=== PATIENT | female | born 1955 | race Caucasian/White ===

== ENCOUNTER 2017-01-13 15:25 | Inpatient (IN) | payer OTHER ==
[~2017-01-13] VITALS: Ht 152.4 cm; Wt 60.4 kg
[2017-01-13 19:30] VITALS: Ht 152.4 cm; Wt 60.4 kg
[2017-01-13 20:00] VITALS: BP 105/62; RESP 20
[2017-01-13 20:02] VITALS: BP_SYST 105; BP_SYST 116; BP_DIAS 59; BP_DIAS 62; RESP 18
[2017-01-13 20:13] VITALS: PULSE 60
[2017-01-13] MEDS ORDERED: HYDROCODONE/APAP (5/325) TAB PO PRN (20:30)
[2017-01-13] MEDS ORDERED: NITROGLYCERIN (SL) 0.4 MG TAB SL PRN (20:30)
[2017-01-13] MEDS ORDERED: NACL 0.9% 3 ML SYG IV SCH (20:30)
--- NOTE | 2017-01-13 20:37 | HP ---
Date/Time of Note Date/Time of Note DATE: 01/13/17 TIME: 20:36 Assessment/Plan VTE Prophylaxis VTE Prophylaxis Intervention: other (Lovenox) Assessment/Plan Assessment/Plan 1) Syncope - Admit to Telemetry - Carotid Duplec - Echocardiogram 2) DM Type 2 - Diabetic Diet - Accu Chek AC and HS - Mild Insulin Sliding Scale HPI/ROS Admit Date/Time Admit Date/Time Jan 13, 2017 at 19:12 Hx of Present Illness Direct Admission from [facility], for Insurance Reasons. DX: Syncope, DM. Patient is a 61-year-old female brought in by the medics from home. She told the physician at [facility] that she did not know what happened. She said she was in her yard at home and fell. It was unclear what happened. Apparently there may have been some shaking activity after she fell. Her kids were there at the time but were not there to speak with the physician. Patient denies previous history of the same no chest pain or shortness of breath. Patient has been having headaches for the last week. Gradual onset. Also having a burning type lower abdominal pain. Has increased frequency of urination but no dysuria no fever. Review of systems done at [facility] was negative except for abdominal pain and urinary frequency Physical exam done at [facility] showed:Vital signs: Blood pressure 140/55; pulse 73 ; respirations 14; temperature 98.1; SPO2 99% on room air at [facility] that she was oriented to person place and time and appeared well-developed and well- nourished. She was rubbing her head and speaking clearly in full sentences; Her head was normocephalic atraumatic; eyes: Extraocular muscles are normal and pupils are equal round and reactive to light; neck: Normal range of motion, neck supple; cardiovascular: Normal rate regular rhythm and normal heart sounds ; pulmonary/chest: Effort normal and breath sounds normal. No respiratory distress. No wheezes or rales; abdominal: Soft. She exhibits no distention. There is tenderness in the suprapubic area. There is no rebound and no guarding ; musculoskeletal: Normal range of motion. She exhibits no edema; neurologic: She is alert and oriented to person, place and time. She has normal strength. No cranial nerve deficit or sensory deficit; skin: Warm and dry; EKG interpreted by the ER physician at [facility] shows normal sinus rhythm and no acute changes. While at [facility], patient had a CT scan done of her head. It was unremarkable. She also had blood work done which showed the following: WBCs 6.7, normal differential; hemoglobin 14.6; hematocrit 42.1; normal indices ; platelets 253 Sodium 143; Potassium 3.6; chloride 109 6; CO2 23; anion gap 11; BUN 10; creatinine 0.64; glucose 157 Urinalysis: Glucose negative, ketones negative, specific gravity 1.005, urine hemoglobin 0.03, pH 7.0, protein negative, and O2 negative, leukocyte esterase positive, urobilinogen negative, uro-bilirubin negative Troponin I #1 at 12:30 PM < 0.02 Lipase 31; ALT 21; AST 16; total bilirubin 1.4 (H); bilirubin, direct 0.2; alkaline phosphatase 50; calcium 9.4 Patient was determined to be stable by the [facility] ER physician and after talking to Dr. Quintero here, patient was accepted in transfer. ROS General: Admits: Denies: Fever, Chills, Poor Appetite, Generalized Body Aches Eyes: Admits: Denies: Blurry Vision, Double Vision HENT: Admits: Denies: Ear Pain/Pressure, Runny/Stuffy Nose, Sore Throat Cardiovascular: Admits: Denies: Chest Pain, Palpitations, Leg Swelling Pulmonary: Admits: Denies: Cough, Wheeze, Shortness of Breath Gastrointestinal: Admits: Denies: Abdominal Pain, Nausea, Vomiting, Diarrhea, Blood in Stool, Black-Colored Stool Urogenital: Admits: Denies: Burning with Urination, Urinary Frequency, Blood in Urine Musculoskeletal: Admits: Denies: Joint Pain, Joint Swelling, Muscle Pain Neurological: Admits: Denies: Headache, Dizziness, Numbness, Tingling, Shooting Pains Integumentary: Admits: Denies: Rash, Itch Endocrine: Admits: Denies: Excessive Thirst, Excessive Hunger, Intolerant to Cold , Intolerant to Heat Psychiatric: Admits: Denies: Anxiety, Depression PMH/Family/Social Past Medical History Medical History: diabetes (With dyslipidemia) Social History Smoking Status: Current every day smoker Exam/Review of Systems Vital Signs Vitals Vital Signs Date Time Temp Pulse Resp B/P Pulse Ox O2 Delivery O2 Flow Rate FiO2 01/13/17 20:13 60 01/13/17 20:02 98.4 18 105/62 97 Exam Exam General: WD/WN Dominican-Speaking female, alert and oriented, in NAD Eyes: Sclera White, EOMI HENT: Normocephalic/Atraumatic, External Ears/Nose Normal, Moist Mucus Membranes Neck: Supple, Trachea Midline Cardiovascular: Normal Rate, Regular Rhythm, Normal S1 and S2, No Murmur, No Extra Sounds. Radial pulse +2/4. No pedal Edema. Pulmonary: Clear to Auscultation Bilaterally, Normal Respiratory Effort, No Rales, Rhonchi or Wheezes Gastrointestinal: Normoactive Bowel Sounds, Soft, Non-Tender/Non-Distended, No Hepatosplenomegaly Appreciated, No Pulsatile Masses Urogenital: Deferred Musculoskeletal: Normal Muscle Bulk and Tone Neurological: CN II - XII Grossly Intact, Non-Focal, Speech Normal Integumentary: Normal Moisture and Temperature, Good Turgor, No Jaundice, No Rash Lymphatic: No Cervical Lymphadenopathy Psychiatric: Appropriate Mood and Affect, Good Eye Contact Medications Medications Current Medications Ondansetron HCl (Zofran Tab) 4 mg Q6H PRN PO NAUSEA AND/OR VOMITING; Start at 20:30; Status UNV Nitroglycerin (Nitroglycerin (Sl Tab) 0.4 Mg) 1 tab Q5M PRN SL CHEST PAIN; Start 01/13/17 at 20:30; Status UNV Acetaminophen (Tylenol Tab) 650 mg Q6H PRN PO PAIN LEVEL 1-3 OR FEVER; Start at 20:30; Status UNV Acetaminophen/ Hydrocodone Bitart ([place] (5/325)) 1 tab Q6H PRN PO PAIN LEVEL 4 -6; Start 01/13/17 at 20:30; Status UNV Acetaminophen/ Hydrocodone Bitart ([place] (5/325)) 2 tab Q6H PRN PO PAIN LEVEL 7 -10; Start 01/13/17 at 20:30; Status UNV Famotidine (Pepcid) 20 mg Q12 PO ; Start 01/13/17 at 21:00; Status UNV Enoxaparin Sodium (Lovenox) 40 mg DAILY SC ; Start 01/14/17 at 09:00; Status UNV Miscellaneous Information (* Miscellaneous Pharmacy Order) HYPOGLYCEMIA PROTOCOL w... ONCE ONCE XX ; Start 01/13/17 at 20:30; Stop 01/13/17 at 20:31; Status UNV Miscellaneous Information (* Miscellaneous Pharmacy Order) Discontinue Glyburide , Glipizide,... ONCE ONCE XX ; Start 01/13/17 at 20:30; Stop 01/13/17 at 20:31 ; Status UNV Miscellaneous Information (* Miscellaneous Pharmacy Order) Discontinue all previ... ONCE ONCE XX ; Start 01/13/17 at 20:30; Stop 01/13/17 at 20:31; Status UNV Diagnostic Test (Pha) (Accu-Chek) 1 ea 02 XX ; Start 01/14/17 at 02:00; Status UNV DULCE HUANG DO Jan 13, 2017 20:37
[2017-01-13] MEDS ORDERED: GLUCOSE GEL 15 GRAM TUBE PO PRN ×2 (21:00)
[2017-01-13] MEDS ORDERED: DEXTROSE 50% 50 ML SYRINGE IV PRN ×2 (21:00)
[2017-01-13] MEDS: INSULIN ASPART [NOVOLOG] 3 ML PEN SC SCH (21:00)
[2017-01-13] MEDS ORDERED: GLUCAGON 1 MG INJ IM PRN (21:00)
[2017-01-13] MEDS ORDERED: GLUCOSE GEL 15 GRAM TUBE BUCCAL PRN (21:00)
[2017-01-13] MEDS: FAMOTIDINE 20 MG TAB PO SCH (21:45)
[2017-01-13] MEDS: ACETAMINOPHEN 325 MG TAB PO PRN (21:46)
[2017-01-14] VITALS (13 sets, daily range): BP systolic 101–111; BP diastolic 50–58; PULSE 40–116; RESP 16–20
[2017-01-14] MEDS ORDERED: LORAZEPAM 1 MG TAB PO ONE (00:15)
[2017-01-14] MEDS: ACCU-CHEK XX SCH (02:00)
--- NOTE | 2017-01-14 07:44 | RADRPT ---
PROCEDURE: US Carotids. CLINICAL INDICATION: Syncope TECHNIQUE: Multiple sonographic of the carotid arteries were obtained utilizing rolon scale imaging . Color and Doppler imaging was performed. The images were reviewed on a PACS workstation. COMPARISON: None FINDINGS: Location Right Left CCA 103 cm/sec 107 cm/sec Prox ICA 62 cm/sec 57 cm/sec Mid ICA 69 cm/sec 72 cm/sec Dist ICA 58 cm/sec 71 cm/sec ECA 108 cm/sec 89 cm/sec ICA/CCA 0.9 0.7 Antegrade flow is seen within the vertebral arteries bilaterally. No significant is seen within the carotid system bilaterally. IMPRESSION: 1. No evidence for hemodynamically significant stenosis- validated velocity measurements with [place] ographic measurements, velocity criteria are extrapolated from diameter data as defined by the Socie ty of Radiologists in Ultrasound Consensus Conference Radiology 2003; 229;340-346. This study does indirectly reference the measurement of the distal ICA diameter as the denominator for stenosis luis urement. 2. Antegrade flow seen within the vertebral arteries bilaterally. Note: Ultrasound velocity criteria are extrapolated from diameter data as defined by the Society of Radiologists in Ultrasound Consensus Conference Radiology 2003; 229;340-346. RPTAT:PP .Lupillo Moran MD, Date Time Electronically viewed and signed by .Lupillo Moran MD, on 01/14/2017 07:43 .V/
[2017-01-14 08:07] LABS: ADD SCAN DIFF NO
[2017-01-14] MEDS: HYDROCODONE/APAP (5/325) TAB PO PRN ×2 (08:11→19:05)
[2017-01-14 08:12] LABS: BASOPHILS % 0.5 % (0.0-2.0); EOSINOPHILS # 0.2 10^3/ul (0.0-0.5); EOSINOPHILS % 3.3 % (0.0-7.0); HEMATOCRIT 41.4 % (37.0-47.0); HEMOGLOBIN 13.7 g/dl (12.0-16.0); LYMPHOCYTES # 2.4 10^3/ul (0.8-2.9); LYMPHOCYTES % 40.9 % (15.0-51.0); MEAN CORPUSCULAR HEMOGLOBIN 30.7 pg (29.0-33.0); MEAN CORPUSCULAR HGB CONC 33.1 g/dl (32.0-37.0); MEAN CORPUSCULAR VOLUME 92.8 fl (82.0-101.0); MEAN PLATELET VOLUME 10.8 fl (7.4-10.4); MONOCYTE # 0.5 10^3/ul (0.3-0.9); MONOCYTES % 7.7 % (0.0-11.0); NEUTROPHIL # 2.8 10^3/ul (1.6-7.5); NEUTROPHILS % 47.4 % (39.0-77.0); PLATELET COUNT 267 10^3/UL (140-415); RED BLOOD COUNT 4.46 10^6/ul (4.20-5.40); RED CELL DISTRIBUTION WIDTH 12.5 % (11.5-14.5); WHITE BLOOD COUNT 5.8 10^3/ul (4.8-10.8)
[2017-01-14] MEDS: INSULIN ASPART [NOVOLOG] 3 ML PEN SC SCH ×4 (08:12→21:00)
[2017-01-14] MEDS: ENOXAPARIN 40 MG/0.4 ML SYG SC SCH (08:13)
[2017-01-14] MEDS: FAMOTIDINE 20 MG TAB PO SCH ×2 (08:13→21:00)
[2017-01-14 08:28] LABS: ALBUMIN 3.5 g/dl (3.3-4.9); ALBUMIN/GLOBULIN RATIO 1.34; BILIRUBIN,INDIRECT 0.8 mg/dl (0-1.1); BILIRUBIN,TOTAL 0.8 mg/dl (0.2-1.3); CALCIUM 8.7 mg/dl (8.4-10.2); CHOL/HDL RATIO 2.5 RATIO; CREATININE 0.63 mg/dl (0.44-1.00); POTASSIUM 3.9 mmol/L (3.5-5.1); TOTAL PROTEIN 6.1 g/dl (6.1-8.1)
[2017-01-14 08:55] LABS: THYROID STIMULATING HORMONE 0.547 MIU/L (0.465-4.680)
--- NOTE | 2017-01-14 09:06 | RADRPT ---
Vent Rate: 62 bpm RR Interval: 0 msec LA Interval: 202 msec QRS Duration: 72 msec QT Interval: 432 msec QTC Interval: 438 msec P-R-T [place]: 53 - 8 - 47 degrees Normal sinus rhythm Nonspecific T wave abnormality Abnormal ECG Electronically Signed By: Ramana Chand [id number]
[2017-01-14] MEDS: ONDANSETRON 4 MG TAB PO PRN ×2 (09:09→19:05)
[2017-01-14] MEDS ORDERED: ONDANSETRON 4 MG INJ IV PRN (11:00)
--- NOTE | 2017-01-14 11:07 | CONS ---
Date/Time of Note Date/Time of Note DATE: 01/14/17 TIME: 10:56 Assessment/Plan Assessment/Plan Chief Complaint/Hosp Course 61 year old female active smoker, diabetes presents with complaint of dizziness followed by syncopal episode with brief loss of consciousness without any described seizure activity. Recommendations: -will check for potential ischemic event or vertebrobasilar stenosis: MRI Brain without contrast, MRA Head/Neck without contrast -B12, TSH, Folate, HBA1C checked 6.1% -ECHO -tele monitoring may consider also outpatient Holter to evaluate for potential arrhythmia -PT/OT evaluation -will follow Problems: Consultation Date/Type/Reason Admit Date/Time Jan 13, 2017 at 19:12 Date of Consultation: Jan 14, 2017 Type of Consultation: Neurology Reason for Consultation syncope Referring Provider: MELODIE DOVE NP Hx of Present Illness 61 year old female active smoker with history of uncontrolled diabetes and non- compliance with insulin admitted after syncopal event witnessed by son. Per history obtained by grand-daughter at bedside she was in her usual state of health yesterday began suddenly feeling unwell described feeling dizzy and shaky and while walking up the stairs passed out with LOC for up to 1 min. No seizure activity was described, no tongue biting or urinary incontinence. She has a history of similar admission once prior for dizziness in the setting of hypoglycemia. She complains also of shortness of breath and generalized weakness. Past Medical History none reported Past Surgical History Past Surgical Hx: no surgical history Family History Significant Family History: no pertinent family hx Social History smokes 3x a day Smoking Status: Current every day smoker Drug Use: none Exam/Review of Systems Vital Signs Vitals Vital Signs Date Time Temp Pulse Resp B/P Pulse Ox O2 Delivery O2 Flow Rate FiO2 01/14/17 09:33 50 01/14/17 07:28 98.0 18 101/50 97 01/13/17 20:00 Room Air Intake and Output 01/13/17 01/13/17 01/14/17 15:00 23:00 07:00 Intake Total 550 ml Balance 550 ml Exam awake and alert oriented x3 flat affected answers questions with slow response time can follow all commands requires repeat stimulation CN NETO, VFF, EOMI no nystagmus V1-3 intact no facial asymmetry palate upgoing uvula midline scm/trap intact tongue midline Motor: poor effort provided in strength testing but overall 5/5 Sensory intact throughout Coordination: slowed bilaterally, poor effort Reflexes 2+ throughout toes down Gait not assessed Results Result Diagram: 01/14/17 0735 01/14/17 0735 Results 24 hrs Laboratory Tests Test 01/13/17 20:09 01/14/17 07:35 01/14/17 08:01 Bedside Glucose 78 162 White Blood Count 5.8 Red Blood Count 4.46 Hemoglobin 13.7 Hematocrit 41.4 Mean Corpuscular Volume 92.8 Mean Corpuscular Hemoglobin 30.7 Mean Corpuscular Hemoglobin Concent 33.1 Red Cell Distribution Width 12.5 Platelet Count 267 Mean Platelet Volume 10.8 H Neutrophils % 47.4 Lymphocytes % 40.9 Monocytes % 7.7 Eosinophils % 3.3 Basophils % 0.5 Nucleated Red Blood Cells % 0.0 Neutrophils # 2.8 Lymphocytes # 2.4 Monocytes # 0.5 Eosinophils # 0.2 Basophils # 0.0 Nucleated Red Blood Cells # 0.0 Sodium Level 138 Potassium Level 3.9 Chloride Level 110 Carbon Dioxide Level 24 Anion Gap 8 Blood Urea Nitrogen 19 Creatinine 0.63 Glucose Level 127 Hemoglobin A1c 6.1 H Calcium Level 8.7 Magnesium Level 2.0 Total Bilirubin 0.8 Direct Bilirubin 0.00 Indirect Bilirubin 0.8 Aspartate Amino Transf (AST/SGOT) 15 Alanine Aminotransferase (ALT/SGPT) 27 Alkaline Phosphatase 53 Total Protein 6.1 Albumin 3.5 Globulin 2.60 Albumin/Globulin Ratio 1.34 Triglycerides Level 132 Cholesterol Level 169 LDL Cholesterol, Calculated 77 HDL Cholesterol 66 Cholesterol/HDL Ratio 2.5 Thyroid Stimulating Hormone (TSH) 0.547 Medications Medications Current Medications Ondansetron HCl (Zofran Tab) 4 mg Q6H PRN PO NAUSEA AND/OR VOMITING Last administered on 01/14/17 09:09; Admin Dose 4 MG; Start 01/13/17 at 20:30 Nitroglycerin (Nitroglycerin (Sl Tab) 0.4 Mg) 1 tab Q5M PRN SL CHEST PAIN; Start 01/13/17 at 20:30 Acetaminophen (Tylenol Tab) 650 mg Q6H PRN PO PAIN LEVEL 1-3 OR FEVER Last administered on 01/13/17 21:46; Admin Dose 650 MG; Start 01/13/17 at 20:30 Acetaminophen/ Hydrocodone Bitart ([place] (5/325)) 1 tab Q6H PRN PO PAIN LEVEL 4 -6; Start 01/13/17 at 20:30 Acetaminophen/ Hydrocodone Bitart ([place] (5/325)) 2 tab Q6H PRN PO PAIN LEVEL 7 -10 Last administered on 01/14/17 08:11; Admin Dose 2 TAB; Start 01/13/17 at 20 :30 Famotidine (Pepcid) 20 mg Q12 PO Last administered on 01/14/17 08:13; Admin Dose 20 MG; Start 01/13/17 at 21:00 Enoxaparin Sodium (Lovenox) 40 mg DAILY SC Last administered on 01/14/17 08:13 ; Admin Dose 40 MG; Start 01/14/17 at 09:00 Diagnostic Test (Pha) (Accu-Chek) 1 ea 02 XX ; Start 01/14/17 at 02:00 Miscellaneous Information 1 ea NOTE XX ; Start 01/13/17 at 21:00 Glucose (Glutose) 15 gm Q15M PRN PO DECREASED GLUCOSE; Start 01/13/17 at 21:00 Glucose (Glutose) 22.5 gm Q15M PRN PO DECREASED GLUCOSE; Start 01/13/17 at 21: 00 Dextrose (D50w Syringe) 25 ml Q15M PRN IV DECREASED GLUCOSE; Start 01/13/17 at 21:00 Dextrose (D50w Syringe) 50 ml Q15M PRN IV DECREASED GLUCOSE; Start 01/13/17 at 21:00 Glucagon (Glucagen) 1 mg Q15M PRN IM DECREASED GLUCOSE; Start 01/13/17 at 21:00 Glucose (Glutose) 15 gm Q15M PRN BUCCAL DECREASED GLUCOSE; Start 01/13/17 at 21 :00 Ondansetron HCl 4 mg 4 mg Q4H PRN IV NAUSEA AND/OR VOMITING; Start 01/14/17 at 11:00 Ceftriaxone Sodium (Rocephin) 50 ml @ 100 mls/hr Q24H IVPB ; Start 01/14/17 at 11:00; Status UNV Meclizine HCl (Antivert) 25 mg TID PRN PO Dizziness; Start 01/14/17 at 11:00; Status JAQUELINE PHOENIX MD Jan 14, 2017 11:07
--- NOTE | 2017-01-14 11:30 | PN ---
DATE: 01/14/2017 SUBJECTIVE DATA: Complains of dizziness with minimal changes in position. Complains of lower abdominal pain. Complains of nausea. Complains of pleuritic chest pain. OBJECTIVE DATA: VITAL SIGNS: As per the chart. GENERAL: This is an adequately built female lying in bed in no apparent distress. HEENT: Head normocephalic and atraumatic. Eyes: Anicteric sclerae. Conjunctivae clear. ENT: Nasal septum is midline. Oral mucosa is moist. NECK: Supple. No JVD noticed. RESPIRATORY: Bilaterally diminished breath sounds. No adventitious breath sounds. No use of accessory muscles of respiration. CARDIAC: Regular rate and rhythm. Bradycardia. No obvious murmurs heard. ABDOMEN: Soft. Nondistended. Tenderness in the suprapubic area. No rebound tenderness or guarding. GENITOURINARY: Right CVA tenderness. EXTREMITIES: No cyanosis, no clubbing, no edema. Peripheral pulses palpable. NEUROLOGIC: The patient is awake, alert and oriented. Moves all 4 extremities. No focal deficits. LABORATORY AND DIAGNOSTIC DATA: WBC 5.8, hemoglobin 13.7, hematocrit 41.4, platelet count 267. Sodium 130, potassium 3.9, chloride 110, carbon dioxide 25 , anion gap 8, BUN 19, creatinine 0.63, glucose 127, calcium 8.7, magnesium 2.0. ASSESSMENT AND PLAN: 1. Possible syncope. Etiology unclear. Brain CT scan from transferring hospital negative for any acute intracranial findings. Pending further diagnostic tests including 2D echocardiogram, carotid Doppler study and 12-lead EKG. We will involve neurology on the case. Urine drug toxicology will be ordered. The patient will be started on p.r.n. meclizine because the patient was complaining of dizziness and vertigo. The patient will also be ruled out for any underlying acute coronary syndrome. The patient's rhythm monitor is showing bradycardia. The patient is not on any AV kaylah blocking agents. 2. Type 2 diabetes mellitus. Hemoglobin A1c is 6.1. The patient will be continued on sliding scale insulin. 3. Possible underlying urinary tract infection. Urinalysis pending. The patient has right CVA tenderness. We will obtain a renal ultrasound to evaluate for any hydronephrosis. We will start the patient on empiric antibiotics. The patient has no evidence of any septic shock. 4. Nicotine use. Cessation will be advised. The patient will be provided with a nicotine patch if she has any symptoms of nicotine withdrawal. 5. Pleuritic chest pain. Etiology unclear. The patient's lung sounds are clear to auscultation. We will obtain a chest x-ray. We will obtain D-dimer to evaluate for any underlying hypercoagulable state. 6. Fluid, electrolytes and nutrition. Carbohydrate controlled diet. 7. Deep venous thrombosis prophylaxis with subcutaneous Lovenox. 8. Gastrointestinal prophylaxis with histamine 2 receptor blockers. PLAN: Continue inpatient monitoring. Await further studies. Obtain a neurology consult. The plan of care was explained to the patient's daughter who was at the bedside. Case discussed with Dr. Overton. MELODIE OVERTON MD, AM/LISS Conf#: [id number] DID#: [id number] MTDD
--- NOTE | 2017-01-14 11:57 | RADRPT ---
PROCEDURE: US Renal CLINICAL INDICATION: Urinary tract infection. Evaluate for hydronephrosis TECHNIQUE: Multiple sonographic images of the kidneys and bladder were obtained. Evaluation of th e kidneys and bladder was performed as well with rolon scale and color and Doppler evaluation using a curved array transducer. The images were reviewed on a high-resolution PACS workstation. COMPARISON: No prior studies are available for comparison. FINDINGS: The right kidney measures 10.4 x 8.0 x 4.6 cm. The left kidney measures 10.8 x 5.3 x 4.4 cm. There is normal echogenicity within the parenchyma of the kidneys bilaterally. There is no mass, calculus, or obstructive uropathy. No perinephric fluid collection is seen. Evaluation of the urinary bladder is unremarkable. IMPRESSION: 1. Unremarkable renal ultrasound. RPTAT: [facility] Physician Nilam Date Time Electronically viewed and signed by Physician Nilam on 01/14/2017 11:57 /
[2017-01-14] MEDS: MECLIZINE 25 MG TAB PO PRN ×2 (12:55→21:10)
[2017-01-14] MEDS: CEFTRIAXONE 1 GM/50 ML (PMX) 50 ML IVPB SCH (12:58)
[2017-01-14 13:35] LABS: INR 1.08; PT RATIO 1.1
[2017-01-14 13:36] LABS: PARTIAL THROMBOPLASTIN TIME 32.6 Sec (25.0-35.0)
[2017-01-14 13:39] LABS: CREATINE KINASE 28 IU/L (23-200); D-DIMER 221.93 ng/ml (<460)
[2017-01-14 13:54] LABS: CK-MB < 0.22 ng/ml (0.0-2.4); TROPONIN-I < 0.012 ng/ml (0.00-0.12)
--- NOTE | 2017-01-14 18:20 | RADRPT ---
PROCEDURE: MRI Brain without contrast. CLINICAL INDICATION: Syncope. TECHNIQUE: An MRI of the brain was performed utilizing the following sequences: Sagittal and axial T1 weighted, axial T2 weighted, axial diffusion weighted with ADC mapping, coronal GRE, and axial F LAIR. COMPARISON: None. FINDINGS: No diffusion weighted abnormalities are seen to suggest the presence of acute ischemia or recent inf arct. No hypointense signal abnormalities are seen on the GRE images to suggest the presence of blo od degradation products. There is no evidence of intracranial hemorrhage, mass effect, or midline s hift. No extra-axial fluid collections are seen. The ventricles and sulci are age-appropriate. There are minimal foci of T2 FLAIR hyperintensity in the white matter, which are nonspecific in etio logy but likely reflect chronic small vessel ischemic changes. No abnormal intracranial vascular flow void is noted. The visualized paranasal sinuses demonstrate m ild scattered mucosal thickening. IMPRESSION: 1. No acute intracranial hemorrhage, infarction or mass. 2. Minimal chronic small vessel ischemic changes. RPTAT: HFN .Jayda Mccracken MD, MD Date Time Electronically viewed and signed by .Jayda Mccracken MD, MD on 01/14/2017 18:20 .N/
--- NOTE | 2017-01-14 18:23 | RADRPT ---
PROCEDURE: MRA Brain. CLINICAL INDICATION: Syncope. TECHNIQUE: An MRA of the brain was performed without intravenous contrast utilizing the following sequences: 3-D [id number] images through the intracranial vasculature with post processed bette l intensity projections in multiple planes. COMPARISON: Concurrent MRI of the brain. FINDINGS: The petrous, cavernous, and supraclinoid internal carotid artery segments are patent without evidenc e of significant stenosis. The proximal anterior cerebral and middle cerebral arteries are patent wi thout significant stenosis. The intradural vertebral arteries, basilar artery and posterior cerebra l arteries are patent without evidence of significant focal stenosis. No aneurysms are identified. IMPRESSION: 1. Patent major intracranial arteries. RPTAT: HFN .Jayda Mccracken MD, Date Time Electronically viewed and signed by .Jayda Mccracken MD, MD on 01/14/2017 18:23 .N/
--- NOTE | 2017-01-14 18:25 | RADRPT ---
PROCEDURE: MRA Neck without contrast. CLINICAL INDICATION: Syncope. TECHNIQUE: An MRA of the major cervical arteries was performed utilizing axial 2D time of flight, 3-D pent-[id number] through the carotid bifurcations, and dynamic contrast enhanced 3-D MR angiograph y technique. Source and MIP images were reviewed. COMPARISON: No prior studies are available for comparison. FINDINGS: The origins of the great vessels off the aortic arch are patent without significant stenosis. The c ommon carotid and internal carotid arteries are patent without hemodynamically significant stenosis by NASCET criteria. Direct measurements of vessel diameters was made in reference to measurements of the distal internal carotid artery diameter. Bilateral vertebral arteries are patent without high- grade stenosis. IMPRESSION: 1. Patent major neck arteries. RPTAT: HFN .Jayda Mccracken MD, MD Date Time Electronically viewed and signed by .Jayda Mccracken MD, MD on 01/14/2017 18:25 .N/
[2017-01-14 19:03] LABS: CREATINE KINASE 32 IU/L (23-200)
[2017-01-14 19:14] LABS: CK-MB < 0.22 ng/ml (0.0-2.4)
[2017-01-14 19:16] LABS: TROPONIN-I < 0.012 ng/ml (0.00-0.12)
[2017-01-15] VITALS (9 sets, daily range): BP systolic 96–125; BP diastolic 47–59; PULSE 53–65; RESP 16–19
[2017-01-15] MEDS: ACCU-CHEK XX SCH (00:09)
[2017-01-15 00:28] LABS: CREATINE KINASE 28 IU/L (23-200)
[2017-01-15 00:41] LABS: CK-MB < 0.22 ng/ml (0.0-2.4)
[2017-01-15 00:44] LABS: TROPONIN-I < 0.012 ng/ml (0.00-0.12)
[2017-01-15 07:47] LABS: ADD SCAN DIFF NO
[2017-01-15] MEDS: INSULIN ASPART [NOVOLOG] 3 ML PEN SC SCH ×4 (07:49→21:08)
[2017-01-15 07:56] LABS: BASOPHIL # 0.1 10^3/ul (0.0-0.1); BASOPHILS % 0.8 % (0.0-2.0); EOSINOPHILS # 0.2 10^3/ul (0.0-0.5); EOSINOPHILS % 2.8 % (0.0-7.0); HEMATOCRIT 38.5 % (37.0-47.0); LYMPHOCYTES % 39.8 % (15.0-51.0); MEAN CORPUSCULAR HEMOGLOBIN 31.4 pg (29.0-33.0); MEAN CORPUSCULAR HGB CONC 33.8 g/dl (32.0-37.0); MEAN PLATELET VOLUME 10.9 fl (7.4-10.4); MONOCYTE # 0.7 10^3/ul (0.3-0.9); MONOCYTES % 9.2 % (0.0-11.0); NEUTROPHIL # 3.5 10^3/ul (1.6-7.5); NEUTROPHILS % 47.1 % (39.0-77.0); PLATELET COUNT 246 10^3/UL (140-415); RED BLOOD COUNT 4.14 10^6/ul (4.20-5.40); RED CELL DISTRIBUTION WIDTH 12.1 % (11.5-14.5); WHITE BLOOD COUNT 7.5 10^3/ul (4.8-10.8)
[2017-01-15 08:08] LABS: CALCIUM 8.9 mg/dl (8.4-10.2); CREATININE 0.75 mg/dl (0.44-1.00)
[2017-01-15 08:08] LABS: PHOSPHORUS 4.9 mg/dl (2.5-4.9)
[2017-01-15] MEDS: ENOXAPARIN 40 MG/0.4 ML SYG SC SCH (08:30)
[2017-01-15] MEDS: FAMOTIDINE 20 MG TAB PO SCH ×2 (08:31→21:07)
[2017-01-15 09:16] LABS: ADD UMIC YES; URINE BILIRUBIN (Dip) NEGATIVE (NEGATIVE); URINE BLOOD (Dip) TRACE (NEGATIVE); URINE COLOR LT. YELLOW (YELLOW); URINE GLUCOSE (Dip) NEGATIVE (NEGATIVE); URINE KETONES (Dip) NEGATIVE (NEGATIVE); URINE LEUKOCYTE ESTERASE (Dip) 1+ (NEGATIVE); URINE NITRITE (Dip) NEGATIVE (NEGATIVE); URINE TOTAL PROTEIN (Dip) NEGATIVE (NEGATIVE); URINE UROBILINOGEN (Dip) 0.2 E.U./dL (0.1-1.0)
[2017-01-15 09:33] LABS: BARBITURATES Negative (NEGATIVE); BENZODIAZEPINES Negative (NEGATIVE); CANNABINOIDS Negative (NEGATIVE); COCAINE Negative (NEGATIVE); OPIATES Positive (NEGATIVE)
[2017-01-15 10:22] LABS: BACTERIA,URINE FEW; URINE RBCS 0-2 /HPF (0)
--- NOTE | 2017-01-15 10:39 | CONS ---
Date/Time of Note Date/Time of Note DATE: 01/15/17 TIME: 10:35 Consult Date/Type/Reason Admit Date/Time Jan 13, 2017 at 19:12 Initial Consult Date 01/14/17 Type of Consultation: Neurology Reason for Consultation syncopal event Ordering Provider: MELODIE DOVE WARP HAND Subjective still complaining of chest pain, shortness of breath, difficulty ambulating, reports dizziness improved, denies headache undergoing cardiac work up Objective Vital Signs Date Time Temp Pulse Resp B/P Pulse Ox O2 Delivery O2 Flow Rate FiO2 01/15/17 08:30 53 01/15/17 08:00 98.0 18 109/53 97 01/13/17 20:00 Room Air Intake and Output 01/14/17 01/14/17 01/15/17 15:00 23:00 07:00 Intake Total 660 ml Balance 660 ml Exam awake and alert oriented x3 flat affected answers questions with slow response time can follow all commands requires repeat stimulation CN NETO, VFF, EOMI no nystagmus V1-3 intact no facial asymmetry palate upgoing uvula midline scm/trap intact tongue midline Motor: poor effort provided in strength testing but overall 5/5 Sensory intact throughout Coordination: slowed bilaterally, poor effort Reflexes 2+ throughout toes down Gait not assessed Results/Medications Result Diagram: 01/15/17 0713 01/15/17 0715 Results 24 hrs Laboratory Tests Test 01/14/17 11:00 01/14/17 11:54 01/14/17 13:10 01/14/17 17:37 Bedside Glucose 176 143 120 Prothrombin Time 14.0 Prothrombin Time Ratio 1.1 INR International Normalized Ratio 1.08 Activated Partial Thromboplast Time 32.6 D-Dimer 221.93 D-Dimer Comment Creatine Kinase 28 Creatine Kinase Index 0.8 Creatinine Kinase MB (Mass) < 0.22 Troponin I < 0.012 Vitamin D 1,25-Dihydroxy 20.9 L Free Thyroxine 1.12 Test 01/14/17 18:30 01/14/17 21:11 01/14/17 21:57 01/14/17 22:40 Creatine Kinase 32 28 Creatine Kinase Index 0.7 0.8 Creatinine Kinase MB (Mass) < 0.22 < 0.22 Troponin I < 0.012 < 0.012 Bedside Glucose 186 167 Test 01/15/17 02:00 01/15/17 07:13 01/15/17 07:15 01/15/17 07:45 Urine Color LT. YELLOW Urine Clarity CLEAR Urine pH 6.0 Urine Specific [place] 1.015 Urine Ketones NEGATIVE Urine Nitrite NEGATIVE Urine Bilirubin NEGATIVE Urine Urobilinogen 0.2 E.U./dL Urine Leukocyte Esterase 1+ H Urine Microscopic RBC 0-2 Urine Microscopic WBC 5-10 Urine Epithelial Cells FEW Urine Bacteria FEW Urine Hemoglobin TRACE Urine Glucose NEGATIVE Urine Total Protein NEGATIVE Urine Opiates Screen Positive Urine Barbiturates Negative Urine Amphetamines Screen Negative Urine Benzodiazepines Screen Negative Urine Cocaine Screen Negative Urine Cannabinoids Negative White Blood Count 7.5 # Red Blood Count 4.14 L Hemoglobin 13.0 Hematocrit 38.5 Mean Corpuscular Volume 93.0 Mean Corpuscular Hemoglobin 31.4 Mean Corpuscular Hemoglobin Concent 33.8 Red Cell Distribution Width 12.1 Platelet Count 246 Mean Platelet Volume 10.9 H Neutrophils % 47.1 Lymphocytes % 39.8 Monocytes % 9.2 Eosinophils % 2.8 Basophils % 0.8 Nucleated Red Blood Cells % 0.0 Neutrophils # 3.5 Lymphocytes # 3.0 H Monocytes # 0.7 Eosinophils # 0.2 Basophils # 0.1 Nucleated Red Blood Cells # 0.0 Phosphorus Level 4.9 Magnesium Level 2.0 Sodium Level 136 Potassium Level 4.0 Chloride Level 110 Carbon Dioxide Level 24 Anion Gap 6 L Blood Urea Nitrogen 22 H Creatinine 0.75 Glucose Level 135 Calcium Level 8.9 Bedside Glucose 131 Medications Current Medications Ondansetron HCl (Zofran Tab) 4 mg Q6H PRN PO NAUSEA AND/OR VOMITING Last administered on 01/14/17 19:05; Admin Dose 4 MG; Start 01/13/17 at 20:30 Nitroglycerin (Nitroglycerin (Sl Tab) 0.4 Mg) 1 tab Q5M PRN SL CHEST PAIN; Start 01/13/17 at 20:30 Acetaminophen (Tylenol Tab) 650 mg Q6H PRN PO PAIN LEVEL 1-3 OR FEVER Last administered on 01/13/17 21:46; Admin Dose 650 MG; Start 01/13/17 at 20:30 Acetaminophen/ Hydrocodone Bitart ([place] (5/325)) 1 tab Q6H PRN PO PAIN LEVEL 4 -6 Last administered on 01/15/17 08:31; Admin Dose 1 TAB; Start 01/13/17 at 20: 30 Acetaminophen/ Hydrocodone Bitart ([place] (5/325)) 2 tab Q6H PRN PO PAIN LEVEL 7 -10 Last administered on 01/14/17 19:05; Admin Dose 2 TAB; Start 01/13/17 at 20 :30 Famotidine (Pepcid) 20 mg Q12 PO Last administered on 01/15/17 08:31; Admin Dose 20 MG; Start 01/13/17 at 21:00 Enoxaparin Sodium (Lovenox) 40 mg DAILY SC Last administered on 01/15/17 08:30 ; Admin Dose 40 MG; Start 01/14/17 at 09:00 Diagnostic Test (Pha) (Accu-Chek) 1 ea 02 XX ; Start 01/14/17 at 02:00 Miscellaneous Information 1 ea NOTE XX ; Start 01/13/17 at 21:00 Glucose (Glutose) 15 gm Q15M PRN PO DECREASED GLUCOSE; Start 01/13/17 at 21:00 Glucose (Glutose) 22.5 gm Q15M PRN PO DECREASED GLUCOSE; Start 01/13/17 at 21: 00 Dextrose (D50w Syringe) 25 ml Q15M PRN IV DECREASED GLUCOSE; Start 01/13/17 at 21:00 Dextrose (D50w Syringe) 50 ml Q15M PRN IV DECREASED GLUCOSE; Start 01/13/17 at 21:00 Glucagon (Glucagen) 1 mg Q15M PRN IM DECREASED GLUCOSE; Start 01/13/17 at 21:00 Glucose (Glutose) 15 gm Q15M PRN BUCCAL DECREASED GLUCOSE; Start 01/13/17 at 21 :00 Ondansetron HCl 4 mg 4 mg Q4H PRN IV NAUSEA AND/OR VOMITING Last administered on 01/14/17 12:55; Admin Dose 4 MG; Start 01/14/17 at 11:00 Ceftriaxone Sodium (Rocephin) 50 ml @ 100 mls/hr Q24H IVPB Last administered on 01/14/17 12:58; Admin Dose 100 MLS/HR; Start 01/14/17 at 11:00 Meclizine HCl (Antivert) 25 mg TID PRN PO Dizziness Last administered on 21:10; Admin Dose 25 MG; Start 01/14/17 at 11:00 Assessment/Plan Chief Complaint/Hosp Course 61 year old female active smoker, diabetes presents with complaint of dizziness followed by syncopal episode with brief loss of consciousness without any described seizure activity. MRI Brain, MRA Head/Neck are all wnl. I doubt this is a neurologic issue. Recommendations: -continue planned cardiac work up -continue meclizine prn for dizziness -check orthostatics vitals -smoking cessation Problems: JAQUELINE DOW MD Jan 15, 2017 10:39
[2017-01-15] MEDS: CEFTRIAXONE 1 GM/50 ML (PMX) 50 ML IVPB SCH (11:19)
--- NOTE | 2017-01-15 17:15 | PN ---
Date/Time of Note Date/Time of Note DATE: 01/15/17 TIME: 17:10 Assessment/Plan VTE Prophylaxis VTE Prophylaxis Intervention: LMWH Lines/Catheters IV Catheter Type (from Nrs): [place] Assessment/Plan Assessment/Plan 1. Syncope, awaiting for echo 2. Type 2 diabetes mellitus. Hemoglobin A1c is 6.1. The patient will be continued on sliding scale insulin. 3. UTI, on rocephin 4. Deep venous thrombosis prophylaxis with subcutaneous Lovenox. Subjective 24 Hr Interval Summary Free Text/Dictation some headache. no chest pain Exam/Review of Systems Vital Signs Vitals Vital Signs Date Time Temp Pulse Resp B/P Pulse Ox O2 Delivery O2 Flow Rate FiO2 01/15/17 16:12 65 01/15/17 11:28 98.1 19 125/59 98 01/13/17 20:00 Room Air Intake and Output 01/14/17 01/14/17 01/15/17 15:00 23:00 07:00 Intake Total 660 ml Balance 660 ml Exam Constitutional: alert, oriented, well developed Psych: nl mood/affect, no complaints Head: atraumatic, normocephalic Eyes: EOMI, nl conjunctiva, nl lids ENMT: nl external ears & nose, nl lips & teeth, nl nasal mucosa & septum Neck: non-tender, supple Respiratory: clear to auscultation, normal air movement, No congested cough, No crackles/rales, No diminished breath sounds, No intercostal retraction, No labored breathing, No other, No respirations, No tactile fremitus, No wheezing Cardiovascular: nl pulses, regular rate and rhythm, No S3, No S4, No bruits, No diastolic murmur, No edema, No gallop, No irregular rhythm, No jugular venous distention (JVD), No murmurs/extra sounds, No other, No rub, No systolic murmur Gastrointestinal: nl liver, spleen, non-tender, soft, No ascites, No bowel sounds, No distended, No firm, No hepatomegaly, No mass , No other, No rebound or guarding, No splenomegaly, No surgical scars, No tender Musculoskeletal: nl extremities to inspection Extremities: normal pulses, No calf tenderness, No clubbing, No cyanosis, No edema, No other, No palpable cord, No pitting pedal edema, No tenderness Neurological: [employer] II-XII intact, nl mental status, nl speech, nl strength Skin: nl turgor Lymph: nl lymph nodes Results Result Diagram: 01/15/17 0713 01/15/17 0715 Results 24 hrs Laboratory Tests Test 01/14/17 17:37 01/14/17 18:30 01/14/17 21:11 01/14/17 21:57 Bedside Glucose 120 186 167 Creatine Kinase 32 Creatine Kinase Index 0.7 Creatinine Kinase MB (Mass) < 0.22 Troponin I < 0.012 Test 01/14/17 22:40 01/15/17 02:00 01/15/17 07:13 01/15/17 07:15 Creatine Kinase 28 Creatine Kinase Index 0.8 Creatinine Kinase MB (Mass) < 0.22 Troponin I < 0.012 Urine Color LT. YELLOW Urine Clarity CLEAR Urine pH 6.0 Urine Specific [place] 1.015 Urine Ketones NEGATIVE Urine Nitrite NEGATIVE Urine Bilirubin NEGATIVE Urine Urobilinogen 0.2 E.U./dL Urine Leukocyte Esterase 1+ H Urine Microscopic RBC 0-2 Urine Microscopic WBC 5-10 Urine Epithelial Cells FEW Urine Bacteria FEW Urine Hemoglobin TRACE Urine Glucose NEGATIVE Urine Total Protein NEGATIVE Urine Opiates Screen Positive Urine Barbiturates Negative Urine Amphetamines Screen Negative Urine Benzodiazepines Screen Negative Urine Cocaine Screen Negative Urine Cannabinoids Negative White Blood Count 7.5 # Red Blood Count 4.14 L Hemoglobin 13.0 Hematocrit 38.5 Mean Corpuscular Volume 93.0 Mean Corpuscular Hemoglobin 31.4 Mean Corpuscular Hemoglobin Concent 33.8 Red Cell Distribution Width 12.1 Platelet Count 246 Mean Platelet Volume 10.9 H Neutrophils % 47.1 Lymphocytes % 39.8 Monocytes % 9.2 Eosinophils % 2.8 Basophils % 0.8 Nucleated Red Blood Cells % 0.0 Neutrophils # 3.5 Lymphocytes # 3.0 H Monocytes # 0.7 Eosinophils # 0.2 Basophils # 0.1 Nucleated Red Blood Cells # 0.0 Phosphorus Level 4.9 Magnesium Level 2.0 Sodium Level 136 Potassium Level 4.0 Chloride Level 110 Carbon Dioxide Level 24 Anion Gap 6 L Blood Urea Nitrogen 22 H Creatinine 0.75 Glucose Level 135 Calcium Level 8.9 Test 01/15/17 07:45 01/15/17 11:51 Bedside Glucose 131 121 Medications Medications Current Medications Ondansetron HCl (Zofran Tab) 4 mg Q6H PRN PO NAUSEA AND/OR VOMITING Last administered on 01/14/17 19:05; Admin Dose 4 MG; Start 01/13/17 at 20:30 Nitroglycerin (Nitroglycerin (Sl Tab) 0.4 Mg) 1 tab Q5M PRN SL CHEST PAIN; Start 01/13/17 at 20:30 Acetaminophen (Tylenol Tab) 650 mg Q6H PRN PO PAIN LEVEL 1-3 OR FEVER Last administered on 01/13/17 21:46; Admin Dose 650 MG; Start 01/13/17 at 20:30 Acetaminophen/ Hydrocodone Bitart ([place] (5/325)) 1 tab Q6H PRN PO PAIN LEVEL 4 -6 Last administered on 01/15/17 08:31; Admin Dose 1 TAB; Start 01/13/17 at 20: 30 Acetaminophen/ Hydrocodone Bitart ([place] (5/325)) 2 tab Q6H PRN PO PAIN LEVEL 7 -10 Last administered on 01/14/17 19:05; Admin Dose 2 TAB; Start 01/13/17 at 20 :30 Famotidine (Pepcid) 20 mg Q12 PO Last administered on 01/15/17 08:31; Admin Dose 20 MG; Start 01/13/17 at 21:00 Enoxaparin Sodium (Lovenox) 40 mg DAILY SC Last administered on 01/15/17 08:30 ; Admin Dose 40 MG; Start 01/14/17 at 09:00 Diagnostic Test (Pha) (Accu-Chek) 1 ea 02 XX ; Start 01/14/17 at 02:00 Miscellaneous Information 1 ea NOTE XX ; Start 01/13/17 at 21:00 Glucose (Glutose) 15 gm Q15M PRN PO DECREASED GLUCOSE; Start 01/13/17 at 21:00 Glucose (Glutose) 22.5 gm Q15M PRN PO DECREASED GLUCOSE; Start 01/13/17 at 21: 00 Dextrose (D50w Syringe) 25 ml Q15M PRN IV DECREASED GLUCOSE; Start 01/13/17 at 21:00 Dextrose (D50w Syringe) 50 ml Q15M PRN IV DECREASED GLUCOSE; Start 01/13/17 at 21:00 Glucagon (Glucagen) 1 mg Q15M PRN IM DECREASED GLUCOSE; Start 01/13/17 at 21:00 Glucose (Glutose) 15 gm Q15M PRN BUCCAL DECREASED GLUCOSE; Start 01/13/17 at 21 :00 Ondansetron HCl 4 mg 4 mg Q4H PRN IV NAUSEA AND/OR VOMITING Last administered on 01/14/17 12:55; Admin Dose 4 MG; Start 01/14/17 at 11:00 Ceftriaxone Sodium (Rocephin) 50 ml @ 100 mls/hr Q24H IVPB Last administered on 01/15/17 11:19; Admin Dose 100 MLS/HR; Start 01/14/17 at 11:00 Meclizine HCl (Antivert) 25 mg TID PRN PO Dizziness Last administered on 21:10; Admin Dose 25 MG; Start 01/14/17 at 11:00 GENEVIEVE CHINCHILLA MD Jan 15, 2017 17:15
[2017-01-15] MEDS: HYDROCODONE/APAP (5/325) TAB PO PRN (23:08)
[2017-01-16] VITALS (9 sets, daily range): BP systolic 99–139; BP diastolic 54–68; PULSE 54–70; RESP 16–18
[2017-01-16] MEDS ORDERED: LORAZEPAM 1 MG TAB PO PRN
[2017-01-16] MEDS: ACETAMINOPHEN 325 MG TAB PO PRN (01:19)
[2017-01-16] MEDS: ACCU-CHEK XX SCH (02:00)
[2017-01-16] MEDS: INSULIN ASPART [NOVOLOG] 3 ML PEN SC SCH ×3 (08:00→17:24)
[2017-01-16] MEDS: FAMOTIDINE 20 MG TAB PO SCH (08:56)
[2017-01-16] MEDS: ENOXAPARIN 40 MG/0.4 ML SYG SC SCH (09:00)
[2017-01-16] MEDS: CEFTRIAXONE 1 GM/50 ML (PMX) 50 ML IVPB SCH (11:03)
[2017-01-16] MEDS ORDERED: LEVO250T35 PO (14:25)
[2017-01-16] MEDS ORDERED: HYDR-906 PO (14:25)
--- NOTE | 2017-01-16 14:37 | DS ---
Date/Time of Note Date/Time of Note DATE: 01/16/17 TIME: 14:29 Discharge Summary Admission/Discharge Info Admit Date/Time Jan 13, 2017 at 19:12 Discharge Date/Time Final Diagnosis 1. Syncope, no recurrence 2. Type 2 diabetes mellitus. follow up with 3. UTI, levaquin 4. Migraine headache, norco prn Patient Condition: Stable Hospital Course 61 year old female active smoker, diabetes presents with complaint of dizziness followed by syncopal episode with brief loss of consciousness without any described seizure activity. MRI Brain, MRA Head/Neck are all wnl. ECG monitoring no arrhythmia. Patient has headache, likely migraine. She will be on norco prn and follow up with PCP for this. UA with WBC 5-1900. She is on antibiotics for UTI. Home Meds Active Scripts Levofloxacin* (Levaquin*) 250 Mg Tablet, 250 MG PO DAILY for 3 Days, TAB Prov:GENEVIEVE CHINCHILLA MD 01/16/17 Hydrocodone/Acetaminophen ([place] 5-325 Tablet) 1 Each Tablet, 1 EACH PO Q4H, # 20 TAB Prov:GENEVIEVE CHINCHILLA MD 01/16/17 Follow-up Plan PCP in one week Pending Labs Laboratory Tests Test 01/15/17 17:05 01/15/17 20:37 01/16/17 01:31 01/16/17 07:52 Bedside Glucose 112mg/dL (70-220) 248mg/dL (70-220) 118mg/dL (70-220) 122mg/dL (70-220) Test 01/16/17 11:28 Bedside Glucose 136mg/dL (70-220) GENEVIEVE CHINCHILLA MD Jan 16, 2017 14:37
[2017-01-16] MEDS: MECLIZINE 25 MG TAB PO PRN (17:02)
[2017-01-16] MEDS: ONDANSETRON 4 MG TAB PO PRN (17:02)
--- NOTE | 2017-01-19 10:54 | RADRPT ---
Echocardiogram Report Patient Name: ARIELLE DORSEY Gender: Female Date: 1955 Study Date: 14-Jan-2017 Computer Aided Design Operator: [facility] Location: [id number] Ref. Physician: DULCE HUANG Quality: Adequate Procedures: Transthoracic echocardiogram with complete 2D, M-Mode, and doppler examination. Indications: Syncope. 2D/M Mode Doppler Measurement Value Normal Ranges Measurement Value Normal Ranges LVIDd 2D 3.9 3.5 - 5.6 cm AV Peak Curtis 1.4 m/sec LVIDs 2D 2.6 2.1 - 4.1 cm AV Peak PG 8.0 mmHg LVPWd 2D 1.1 0.6 - 1.1 cm LVOT Peak [place] 1.0 m/sec IVSd 2D 1.1 0.6 - 1.1 cm LVOT Peak PG 4.0 mmHg AoR Diam 2D 2.2 2.0 - 3.7 cm MV E Peak [place] 0.8 m/sec EDV 2D 64.2 cm3 MV A Peak [place] 0.9 m/sec ESV 2D 17.9 cm3 MV E/A 0.9 MV Decel Time 150 msec MV Decel [place] 5 MV E/A 0.9 TR Peak Curtis 2.0 m/sec TR Peak PG 16.8 mmHg Findings Left Ventricle: Normal left ventricular systolic function. Normal left ventricular cavity size. Mild concentric left ventricular hypertrophy. Ejection fraction is visually estimated at 65 %. Tissue Doppler/Mitral Doppler indices are consistent with impaired relaxation (Stage I diastolic dysfunction). Right Ventricle: Normal right ventricular size. Normal right ventricular systolic function. Left Atrium: There is mild enlargement of left atrium. Right Atrium: Right atrium at upper limits of normal. RA Pressure=3. Mitral Valve: Mild mitral annular calcification. Trace mitral regurgitation. Aortic Valve: Normal appearance of the aortic valve. Tricuspid Valve: Tricuspid valve not well visualized. Estimated peak PA systolic pressure 23 mmHg. There is mild tricuspid regurgitation. Pulmonic Valve: There is trace pulmonic regurgitation. Pericardium: Normal pericardium with no significant pericardial effusion. Aorta: Normal aortic root. IVC: Normal size and normal respiratory collapse consistent with normal right atrial pressure. Conclusions 1.Normal left ventricular systolic function. Normal left ventricular cavity size. Mild concentric left ventricular hypertrophy. Ejection fraction is visually estimated at 65 %. Tissue Doppler/Mitral Doppler indices are consistent with impaired relaxation (Stage I diastolic dysfunction). 2.No significant valvular stenosis or regurgitation seen. 3.Estimated peak PA systolic pressure 23 mmHg based on RA pressure of 3 mmHg. Electronically Signed By: Kadeem Melgar 19-Jan-2017 10:54:00 -0700 Patient Name: ARIELLE DORSEY Study Date: 14-Jan-2017 [id number]
== END 2017-01-16 18:10 | disposition home or self-care (01) | DRG 690 ==
LOC: MS4 19:12
PROVIDERS: ADMIT Family Medicine; ATTEND Family Medicine
DX: N39.0 Urinary tract infection, site not specified (principal); E11.69 Type 2 diabetes mellitus with other specified complication; R07.81 Pleurodynia; E78.5 Hyperlipidemia, unspecified; F17.210 Nicotine dependence, cigarettes, uncomplicated; R55 Syncope and collapse; G43.909 Migraine, unspecified, not intractable, without status migrainosus; Z91.14 Patient's other noncompliance with medication regimen
CPT/HCPCS: 70544; 70549; 70551; 76775; 80048; 80053; 80061; 80307; 81001; 81003; 82550; 82553; 82652; 82962; 83036; 83735; 84100; 84439; 84443; 84484; 85025; 85378; 85610; 85730; 87081; 93005; 93306; 93880; J0696; J1650; J1815; J2405